=== PATIENT | female | born 1975 | race Caucasian/White ===

== ENCOUNTER 2017-06-05 11:06 | Inpatient (IN) | payer BC ==
[~2017-06-05] VITALS: Ht 157.5 cm; Wt 89.0 kg
[2017-06-05 07:40] VITALS: BP 125/82
[2017-06-05] MEDS ORDERED: OXYTOCIN 30U/ 0.9% NaCL 500ML 500 ML ONE (11:08)
[2017-06-05] MEDS ORDERED: LACTATED RINGERS 1,000 ML IV SCH (11:08)
[2017-06-05] MEDS ORDERED: OXYTOCIN 30U/ 0.9% NaCL 500ML 500 ML IV ONE (11:08)
[2017-06-05] MEDS ORDERED: OXYTOCIN 10 UNITS/ML, 1ML ONE (11:08)
[2017-06-05] MEDS ORDERED: MISOPROSTOL 200 MCG TABLET ONE (11:09)
[2017-06-05] MEDS ORDERED: NEWBORN KIT ONE (11:09)
[2017-06-05] MEDS ORDERED: FENTANYL PF 100 MCG/2ML IV PRN (11:30)
[2017-06-05] MEDS ORDERED: FENTANYL PF 100 MCG/2ML IVPush PRN (11:30)
[2017-06-05] MEDS ORDERED: PLEASE ENTER HEIGHT AND WEIGHT MC SCH (11:30)
[2017-06-05] MEDS: OXYTOCIN 30U/ 0.9% NaCL 500ML 500 ML IV SCH ×2 (11:52→21:52)
[2017-06-05] MEDS ORDERED: IBUPROFEN 600 MG TABLET ONE (11:57)
[2017-06-05] MEDS ORDERED: OXYcodone/APAP 5/325MG TABLET ONE (11:58)
[2017-06-05] MEDS ORDERED: ACETAMINOPHEN 325 MG TABLET PO PRN (12:00)
[2017-06-05] MEDS ORDERED: MISOPROSTOL 200 MCG TABLET PR PRN (12:00)
[2017-06-05] MEDS ORDERED: OXYTOCIN 10 UNITS/ML, 1ML IM PRN (12:00)
[2017-06-05] MEDS ORDERED: OXYcodone/APAP 5/325MG TABLET PO PRN (12:00)
[2017-06-05] MEDS ORDERED: ONDANSETRON 2MG/ML, 2ML IV PRN (12:00)
[2017-06-05] MEDS ORDERED: METHYLERGONOVINE 0.2 MG/ML IM PRN (12:00)
[2017-06-05] MEDS: IBUPROFEN 600 MG TABLET PO PRN ×2 (12:03→19:35)
[2017-06-05] MEDS: OXYcodone/APAP 5/325MG TABLET PO PRN ×2 (12:04→19:35)
[2017-06-05] MEDS ORDERED: ONDANSETRON ODT 4 MG PO PRN (12:30)
[2017-06-05 16:15] VITALS: BP 129/70
[2017-06-05 19:37] LABS: BASOPHILS # (AUTO) 0.21 x10^3/uL (0-0.1); BASOPHILS % (AUTO) 1 % (0-1); EOSINOPHILS % (AUTO) 0 % (1-7); LYMPHOCYTES # (AUTO) 0.93 x10^3/uL (1-3.4); LYMPHOCYTES % (AUTO) 6 % (22-44); MD NO; MEAN CORPUSCULAR HEMOGLOBIN 24.2 pg (27.0-34.8); MEAN CORPUSCULAR HGB CONC 32.1 g/dL (32.4-35.8); MEAN CORPUSCULAR VOLUME 75.2 fL (80-100); MEAN PLATELET VOLUME 8.9 fL (7.4-10.4); MONOCYTES # (AUTO) 0.66 x10^3/uL (0.2-0.8); MONOCYTES % (AUTO) 4 % (2-9); NEUTROPHILS # (AUTO) 13.02 x10^3/uL (1.8-6.8); NEUTROPHILS % (AUTO) 88 % (42-75); PLATELET COUNT 283 x10^3/uL (130-400); RED CELL DISTRIBUTION WIDTH 17.3 % (9.6-15.2)
[2017-06-05 21:06] VITALS: BP 114/63
[2017-06-06 00:11] VITALS: BP 102/56
[2017-06-06 05:00] VITALS: BP 94/56
[2017-06-06 07:30] VITALS: BP 125/82
[2017-06-06] MEDS: PRENATAL VIT/IRON/FA 1 EACH TABLET PO SCH (07:36)
[2017-06-06] MEDS: DOCUSATE 100 MG CAPSULE PO PRN (07:36)
[2017-06-06] MEDS: IBUPROFEN 600 MG TABLET PO PRN ×2 (14:05→20:07)
[2017-06-06] MEDS: OXYcodone/APAP 5/325MG TABLET PO PRN ×2 (14:05→20:08)
[2017-06-06 19:48] VITALS: BP 102/67
[2017-06-06 20:26] LABS: BASOPHILS # (AUTO) 0.05 x10^3/uL (0-0.1); BASOPHILS % (AUTO) 1 % (0-1); EOSINOPHILS # (AUTO) 0.08 x10^3/uL (0-0.4); EOSINOPHILS % (AUTO) 1 % (1-7); LYMPHOCYTES # (AUTO) 1.46 x10^3/uL (1-3.4); LYMPHOCYTES % (AUTO) 16 % (22-44); MD NO; MEAN CORPUSCULAR HEMOGLOBIN 24.4 pg (27.0-34.8); MEAN CORPUSCULAR HGB CONC 32.3 g/dL (32.4-35.8); MEAN CORPUSCULAR VOLUME 75.7 fL (80-100); MEAN PLATELET VOLUME 9.2 fL (7.4-10.4); MONOCYTES # (AUTO) 0.59 x10^3/uL (0.2-0.8); MONOCYTES % (AUTO) 7 % (2-9); NEUTROPHILS # (AUTO) 6.78 x10^3/uL (1.8-6.8); NEUTROPHILS % (AUTO) 76 % (42-75); PLATELET COUNT 330 x10^3/uL (130-400); RED BLOOD COUNT 3.71 x10^6/uL (3.82-5.3)
[2017-06-07 07:20] VITALS: BP 104/67
[2017-06-07] MEDS: DOCUSATE 100 MG CAPSULE PO PRN (07:28)
[2017-06-07] MEDS: IBUPROFEN 600 MG TABLET PO PRN ×2 (07:28→16:20)
[2017-06-07] MEDS: OXYcodone/APAP 5/325MG TABLET PO PRN ×2 (07:28→16:21)
[2017-06-07] MEDS: PRENATAL VIT/IRON/FA 1 EACH TABLET PO SCH (07:28)
[2017-06-07] MEDS ORDERED: PREN1TAB60 PO (09:44)
[2017-06-07] MEDS ORDERED: OXYC-302 PO (09:45)
[2017-06-07] MEDS ORDERED: IBUP-1222 PO (09:45)
[2017-06-07] MEDS ORDERED: DIPH,PERTUSS(ACELL),TET VAC/PF NC IM-VACC ONE ×3 (11:11→11:30)
== END 2017-06-07 16:30 | disposition home or self-care (01) | DRG 775 ==
LOC: LDOP 11:06 → LDIP 11:09 → UNDOADMIN 11:13 → LDIP 11:13 → 2NW 13:45
PROVIDERS: ADMIT Obstetrics & Gynecology Female Pelvic Medicine and Reconstructive Surgery; ATTEND Obstetrics & Gynecology Female Pelvic Medicine and Reconstructive Surgery
PROC: 10E0XZZ Delivery of Products of Conception, External Approach (ICD-10-PCS; principal; 2017-06-05)
DX: O32.1XX0 Maternal care for breech presentation, not applicable or unspecified (principal); O60.14X0 Preterm labor third trimester with preterm delivery third trimester, not applicable or unspecified; Z37.0 Single live birth; Z3A.35 35 weeks gestation of pregnancy
CPT/HCPCS: 36415; 82803; 85025; 90715; J2590; J7120